=== PATIENT | female | born 1990 | race Asian ===

== ENCOUNTER 2020-02-10 09:32 | Emergency (ER) | payer OTHER ==
[~2020-02-10] VITALS: Ht 147.3 cm; Wt 56.7 kg
[2020-02-10 09:41] VITALS: BP_SYST 165
--- NOTE | 2020-02-10 09:41 | NUR ---
Patient to ER bed 5 to gown for evaluation. Side rails up. Report given to GUILLERMINA Sánchez.
--- NOTE | 2020-02-10 09:45 | NUR ---
ER at bedside examining patient.
--- NOTE | 2020-02-10 09:50 | NUR ---
pt arrives from home w/ hx of anxiety x 3 days. Pt denies any medical hx. Pt is AAO x 4. Will continue to monitor.
[2020-02-10] MEDS ORDERED: LORazepam 1 MG TABLET PO ONE (10:00)
--- NOTE | 2020-02-10 10:50 | NUR ---
pt reports feeling better current HR is 106.
[2020-02-10 11:38] VITALS: BP_SYST 135
--- NOTE | 2020-02-10 11:39 | NUR ---
Patient given written and verbal discharge instructions and verbalizes understanding. ER MD discussed with patient the results and treatment provided. Patient in stable condition. ID arm band removed. Patient educated on pain management and to follow up with PMD. Pain Scale 0/10. Opportunity for questions provided and answered. Medication side effect fact sheet provided. Pt accompanied by her .
== END 2020-02-10 11:39 | disposition home or self-care (01) ==
LOC: SED 09:32
DX: F41.9 Anxiety disorder, unspecified (principal)
CPT/HCPCS: 99283

== ENCOUNTER 2023-03-07 11:01 | Outpatient (CLI) | payer OTHER ==
[2023-03-07 11:44] LABS: BASOPHILS % (AUTO) 0.3 % (0.0-2.0); EOSINOPHILS % (AUTO) 0.5 % (0.0-4.0); HEMATOCRIT 36.2 % (36-48); HEMOGLOBIN 11.9 g/dL (12.0-16.0); LYMPHOCYTES # (AUTO) 2.5 K/uL (1.0-5.5); LYMPHOCYTES % (AUTO) 27.3 % (20.5-51.5); MEAN CORPUSCULAR HEMOGLOBIN 29 pg (27-31); MEAN CORPUSCULAR HGB CONC 33 % (32-36); MEAN CORPUSCULAR VOLUME 89 fL (79.0-98.0); MONOCYTES # (AUTO) 0.7 K/uL (0.0-1.0); MONOCYTES % (AUTO) 7.4 % (1.7-9.3); NEUTROPHILS # (AUTO) 5.9 K/uL (1.8-7.7); NEUTROPHILS % (AUTO) 64.5 % (40.0-70.0); PLATELET COUNT (AUTO) 308 K/uL (130-430); RED BLOOD CELL COUNT(AUTO) 4.07 MIL/uL (4.2-6.2); RED CELL DISTRIBUTION WIDTH 12.9 % (9.0-15.0); WHITE BLOOD COUNT (AUTO) 9.2 K/uL (4.8-10.8)
[2023-03-08 07:07] LABS: HEPATITIS B SURFACE AG Negative (Negative)
[2023-03-08 08:07] LABS: RUBELLA AB, IgG >33.00 index (Immune >0.99)
== END 2023-03-07 18:15 | disposition home or self-care (01) ==
LOC: SLB 11:01
PROVIDERS: ATTEND Family Medicine
DX: Z34.82 Encounter for supervision of other normal pregnancy, second trimester (principal); Z3A.00 Weeks of gestation of pregnancy not specified
CPT/HCPCS: 36415; 83037; 85025; 86762; 86886; 86900; 86901; 87340